=== PATIENT | female | born 1980 | race Asian ===

== ENCOUNTER 2021-01-07 15:35 | Emergency (ER) | payer OTHER ==
[~2021-01-07] VITALS: Ht 157.5 cm; Wt 59.0 kg
--- NOTE | 2021-01-07 15:47 | NUR ---
BIB [facility] FOR C/O "ANXIETY AND RECENT METHAMPHETAMINE USE". VITAL SIGNS STABLE. DENIES CHEST PAIN OR SOB. PLACED ON A MONITOR.
[2021-01-07] MEDS ORDERED: LORA-259 PO (15:52)
--- NOTE | 2021-01-07 16:00 | NUR ---
DC, RX (INCLUDING ALL PRECAUTIONS) AND FOLLOW UP INSTRUCTIONS GIVEN AND EXPLAINED TO PATIENT WHO STATES SHE UNDERSTANDS ALL INSTRUCTIONS. STATES SHE FEELS "MUCH BETTER" NOW
== END 2021-01-07 16:02 | disposition home or self-care (01) ==
LOC: ER 15:39
DX: F41.0 Panic disorder [episodic paroxysmal anxiety] (principal); F15.10 Other stimulant abuse, uncomplicated; Z88.0 Allergy status to penicillin
CPT/HCPCS: A4663